=== PATIENT | male | born 1960 | race Caucasian/White ===

== ENCOUNTER 2019-07-26 11:40 | Day surgery (SDC) | payer MEDICAID, OTHER ==
[~2019-07-26 11:40] MED LIST: ATOR20TA PO; BUDE10.22 INH; CLON0.1T PO; CLOP75TA15 PO; GABA-534 PO; KEP500T PO; LEVO50TA PO; LISI-604 PO; MIDO5TAB4 PO; NITR0.4T48 SL; OLAN-1 PO; OMEP40CA13 PO; WARF3TAB56 PO
[2019-07-26 12:00] VITALS: BP 138/84
[2019-07-26] MEDS ORDERED: LIDOcaine 1% 30ml preserv. free vial IJ STA (12:32)
[2019-07-26] MEDS ORDERED: FERR325T28 PO (13:19)
[2019-07-26] MEDS ORDERED: PANT-47 PO (13:19)
[2019-07-26] MEDS ORDERED: FOLI0.4T2 PO (13:19)
[2019-07-26] MEDS ORDERED: VANC1PIG (13:19)
[2019-07-26] MEDS ORDERED: METO25TA6 PO (13:19)
[2019-07-26] MEDS ORDERED: RIFA150C27 PO (13:19)
[2019-07-26] MEDS ORDERED: DULO30CA52 PO (13:19)
[2019-07-26] MEDS ORDERED: MORP15TA PO (13:19)
[2019-07-26] MEDS ORDERED: NICO-687 TOP (13:19)
[2019-07-26 13:25] VITALS: BP 141/84
[2019-07-26 13:30] VITALS: BP 138/89
[2019-07-26 14:15] VITALS: BP 129/78
== END 2019-07-26 14:15 | disposition home or self-care (01) ==
LOC: SSTAY O 11:40
PROVIDERS: ATTEND Radiology Diagnostic Radiology
DX: R22.31 Localized swelling, mass and lump, right upper limb (principal); C49.11 Malignant neoplasm of connective and soft tissue of right upper limb, including shoulder; Z79.899 Other long term (current) drug therapy; Z79.01 Long term (current) use of anticoagulants; Z85.828 Personal history of other malignant neoplasm of skin; Z83.3 Family history of diabetes mellitus
CPT/HCPCS: 20206; 76942; J2001

== ENCOUNTER 2019-09-03 16:02 | Emergency (ER) | payer MEDICARE, OTHER ==
[~2019-09-03] VITALS: Ht 172.7 cm; Wt 72.0 kg
[~2019-09-03 16:02] MED LIST changes: -ATOR20TA PO; -BUDE10.22 INH; -CLON0.1T PO; -CLOP75TA15 PO; +DULO30CA52 PO; +FERR325T28 PO; +FOLI0.4T2 PO; -GABA-534 PO; -KEP500T PO; -LISI-604 PO; +METO25TA6 PO; +MORP15TA PO; +NICO-687 TOP; -NITR0.4T48 SL; -OLAN-1 PO; -OMEP40CA13 PO; +PANT-47 PO; +RIFA150C27 PO; +VANC1PIG
--- NOTE | 2019-09-03 17:37 | NUR ---
Provider Dr. Theodore is at the bedside.
[2019-09-03] MEDS ORDERED: morphine 10mg/ml inj. IV ONE ×3 (17:55→18:55)
[2019-09-03 18:19] LABS: BASOPHILS % (AUTO) 0.9 % (0-1); EOSINOPHILS # (AUTO) 0.1 X10'3 (0-0.9); EOSINOPHILS % (AUTO) 2.6 % (0-6); HEMATOCRIT 23.9 % (42.0-52.0); HEMOGLOBIN 8.3 g/dl (14.0-17.9); LYMPHOCYTES % (AUTO) 21.5 % (21-51); MEAN CORPUSCULAR HEMOGLOBIN 33.6 PG (27.0-31.0); MEAN CORPUSCULAR HGB CONC 34.9 g/dL (33.0-36.5); MEAN CORPUSCULAR VOLUME 96.2 FL (78-98); MEAN PLATELET VOLUME 8.2 FL (7.4-10.4); MONOCYTES # (AUTO) 0.4 X10'3 (0-0.9); MONOCYTES % (AUTO) 9.5 % (2-12); NEUTROPHILS % (AUTO) 65.5 % (42-75); PLATELET COUNT 139 X10'3 (140-440); RED BLOOD COUNT 2.48 X10'6 (4.70-6.10); RED CELL DISTRIBUTION WIDTH 16.5 % (11.5-14.5); WHITE BLOOD COUNT 4.6 X10'3 (4.5-11.0)
[2019-09-03 18:29] LABS: ALANINE AMINOTRANSFERASE 48 U/L (12-78); ALBUMIN 3.2 G/DL (3.4-5.0); ALBUMIN/GLOBULIN RATIO 0.6 (1.1-1.5); ALKALINE PHOSPHATASE 82 IU/L (46-116); ANION GAP 11 (8-16); ASPARTATE AMINO TRANSFERASE 59 U/L (10-37); BILIRUBIN,TOTAL 0.9 MG/DL (0.1-1.0); BLOOD UREA NITROGEN 14 MG/DL (7-18); BUN/CREATININE RATIO 15.9 (5.4-32.0); CALCIUM 8.5 MG/DL (8.5-10.1); CHLORIDE 97 MMOL/L (99-107); CREATININE 0.88 MG/DL (0.60-1.10); GLUCOSE 87 MG/DL (70-104); LIPASE 76 U/L (73-393); POTASSIUM 3.5 MMOL/L (3.5-5.1); SODIUM 134 MMOL/L (135-145); TOTAL CARBON DIOXIDE 26.2 MMOL/L (24-32); eGFR 88 ML/MIN
[2019-09-03 18:58] LABS: CLARITY,URINE CLEAR (Clear); COLOR,URINE YELLOW (Yellow); GLUCOSE, URINE NEGATIVE (Neg); KETONES,URINE NEGATIVE (Neg); LEUKOCYTE ESTERASE ,URINE NEGATIVE (Neg); NITRITES, URINE NEGATIVE (Neg); OCCULT BLOOD,URINE SMALL (Neg); PROTEIN,URINE NEGATIVE (Neg); UROBILINOGEN,URINE 0.2 E.U/dL (0.2-1.0)
[2019-09-03 19:02] LABS: UA COLLECTION TYPE STRAIGHT CATH
[2019-09-03 19:07] LABS: BACTERIA,URINE NONE SEEN /HPF (Neg); MUCUS STRANDS NONE SEEN /LPF (Neg); SQUAMOUS EPITHELIAL CELL,UR FEW /LPF (FEW); WBC,URINE 0-4 /HPF (0-4)
[2019-09-03] MEDS ORDERED: KETAMINE IV ONE (19:25)
[2019-09-03] MEDS ORDERED: NORMAL SALINE IV ONE (19:25)
--- NOTE | 2019-09-03 19:26 | NUR ---
dr. king at bedside to reeval. temp 100.1, just given msiv 15 mg for pain of 10 out of 10 to low back. pt reprots no bm in 5 days and is suspicious of this exacerbating his back pain. dr. gallardo updated of above.
[2019-09-03] MEDS ORDERED: magnesium citrate 296ml oral solution PO ONE (19:30)
[2019-09-03] MEDS ORDERED: GABA-532 PO (20:15)
[2019-09-03] MEDS ORDERED: LINA145C PO (20:15)
[2019-09-03 21:00] VITALS: BP 141/86
== END 2019-09-03 21:03 | disposition home or self-care (01) ==
LOC: ER 16:03
DX: K59.03 Drug induced constipation (principal); T40.695A Adverse effect of other narcotics, initial encounter; M54.5 Low back pain; G89.29 Other chronic pain; I35.0 Nonrheumatic aortic (valve) stenosis; I25.10 Atherosclerotic heart disease of native coronary artery without angina pectoris; I25.2 Old myocardial infarction; Z95.1 Presence of aortocoronary bypass graft; Z59.0 Homelessness; Z56.0 Unemployment, unspecified; Z98.890 Other specified postprocedural states; Z79.899 Other long term (current) drug therapy; Z79.01 Long term (current) use of anticoagulants; Z85.05 Personal history of malignant neoplasm of liver; Z85.118 Personal history of other malignant neoplasm of bronchus and lung; Y92.89 Other specified places as the place of occurrence of the external cause
CPT/HCPCS: 36415; 72100; 80053; 81001; 83690; 85025; 96365; 96375; 96376; 99284; J2270; P9612

== ENCOUNTER 2019-09-04 14:55 | Inpatient (IN) | payer MEDICARE, OTHER ==
[~2019-09-04] VITALS: Ht 172.7 cm; Wt 72.7 kg
[~2019-09-04 14:55] MED LIST changes: +GABA-532 PO; +LINA145C PO; -NICO-687 TOP; -VANC1PIG
--- NOTE | 2019-09-04 15:39 | NUR ---
Austin alvarez in [facility] - 09/04/19 at 1540 by CHUNG came in to er r/t back pain and having blood in his urnie
--- NOTE | 2019-09-04 15:40 | NUR ---
pt came in the er r/t back pain and having blood in his urine had a f/c placed yesterday temparly and was not able to get his medacation filled yesterday
[2019-09-04] MEDS ORDERED: ondansetron/PF 4mg/2ml inj IV ONE (16:00)
[2019-09-04] MEDS ORDERED: morphine 4 MG/ML inj SYRINge IV ONE (16:00)
[2019-09-04] MEDS ORDERED: ketamine 10mg/ml 20ml inj IV ONE (16:25)
[2019-09-04] MEDS ORDERED: ketamine 50 mg/ml 10ml vial IV ONE (16:25)
[2019-09-04 16:40] LABS: BASOPHILS % (AUTO) 0.8 % (0-1); EOSINOPHILS # (AUTO) 0.1 X10'3 (0-0.9); EOSINOPHILS % (AUTO) 2.6 % (0-6); HEMATOCRIT 24.1 % (42.0-52.0); HEMOGLOBIN 8.3 g/dl (14.0-17.9); LYMPHOCYTES # (AUTO) 1.2 X10'3 (1.1-4.8); LYMPHOCYTES % (AUTO) 23.5 % (21-51); MEAN CORPUSCULAR HEMOGLOBIN 33.1 PG (27.0-31.0); MEAN CORPUSCULAR HGB CONC 34.2 g/dL (33.0-36.5); MEAN CORPUSCULAR VOLUME 96.9 FL (78-98); MEAN PLATELET VOLUME 8.2 FL (7.4-10.4); MONOCYTES # (AUTO) 0.5 X10'3 (0-0.9); NEUTROPHILS # (AUTO) 3.2 X10'3 (1.8-7.7); NEUTROPHILS % (AUTO) 64.1 % (42-75); PLATELET COUNT 132 X10'3 (140-440); RED BLOOD COUNT 2.49 X10'6 (4.70-6.10); RED CELL DISTRIBUTION WIDTH 16.9 % (11.5-14.5)
[2019-09-04] MEDS ORDERED: KETAMINE IV ONE (16:40)
[2019-09-04] MEDS ORDERED: NORMAL SALINE IV ONE (16:40)
[2019-09-04 16:52] LABS: PARTIAL THROMBOPLASTIN TIME 36 SECONDS (22-32)
[2019-09-04] MEDS ORDERED: ketamine 10mg/ml 20ml inj 20 MG in normal saline 100ml IV soln 98 ML IV ONE ×2 (16:52→17:10)
[2019-09-04 16:55] LABS: ALANINE AMINOTRANSFERASE 34 U/L (12-78); ALBUMIN 3.2 G/DL (3.4-5.0); ALBUMIN/GLOBULIN RATIO 0.5 (1.1-1.5); ALKALINE PHOSPHATASE 81 IU/L (46-116); ANION GAP 7 (8-16); ASPARTATE AMINO TRANSFERASE 48 U/L (10-37); BILIRUBIN,TOTAL 1.2 MG/DL (0.1-1.0); BLOOD UREA NITROGEN 21 MG/DL (7-18); BUN/CREATININE RATIO 22.6 (5.4-32.0); CALCIUM 8.5 MG/DL (8.5-10.1); CHLORIDE 97 MMOL/L (99-107); CREATININE 0.93 MG/DL (0.60-1.10); GLUCOSE 104 MG/DL (70-104); POTASSIUM 3.7 MMOL/L (3.5-5.1); SODIUM 132 MMOL/L (135-145); TOTAL CARBON DIOXIDE 28.1 MMOL/L (24-32); TOTAL PROTEIN 9.1 G/DL (6.4-8.2); eGFR 83 ML/MIN
[2019-09-04] MEDS ORDERED: morphine 10mg/ml inj. IV ONE (19:05)
[2019-09-04] MEDS ORDERED: magnesium hydroxide 30ml (MOM) UD suspension PO PRN (19:45)
[2019-09-04] MEDS ORDERED: morphine 2 MG/ML inj. syringe IV PRN (19:45)
[2019-09-04] MEDS ORDERED: mag hydrox/Alum hydrox/simeth 30ml oral suspension PO PRN (19:45)
[2019-09-04] MEDS: metoprolol tartrate 25mg tablet PO SCH (20:00)
[2019-09-04] MEDS ORDERED: warfarin 5mg tablet PO ONE (20:41)
[2019-09-04 21:00] VITALS: BP 98/56
[2019-09-04] MEDS: morphine IR (immed. release) 30mg tablet PO SCH (22:15)
[2019-09-04] MEDS: heparin, porcine 5000 units/ml vial SQ SCH (22:16)
--- NOTE | 2019-09-04 22:53 | NUR ---
Report from ED. Pt is up to floor and settled in. sitting up at bedside, does not want to lie in bed.Very painful 08/03. ED report that pt has "used up all home meds for pain." two sandwiches and 4 milk with yogurt and applesauce provided. All available pain meds have been administered at this time.
[2019-09-05] MEDS: gabapentin 300mg capsule PO SCH ×4 (00:06→23:07)
[2019-09-05 06:00] VITALS: BP 100/57
--- NOTE | 2019-09-05 06:16 | NUR ---
REPORT GIVEN TO MIRIAM ELISE.
[2019-09-05 06:21] LABS: ALANINE AMINOTRANSFERASE 29 U/L (12-78); ALBUMIN 2.9 G/DL (3.4-5.0); ALBUMIN/GLOBULIN RATIO 0.5 (1.1-1.5); ALKALINE PHOSPHATASE 75 IU/L (46-116); ANION GAP 5 (8-16); ASPARTATE AMINO TRANSFERASE 43 U/L (10-37); BILIRUBIN,TOTAL 0.7 MG/DL (0.1-1.0); BLOOD UREA NITROGEN 21 MG/DL (7-18); BUN/CREATININE RATIO 23.1 (5.4-32.0); CALCIUM 8.1 MG/DL (8.5-10.1); CHLORIDE 98 MMOL/L (99-107); CREATININE 0.91 MG/DL (0.60-1.10); GLUCOSE 98 MG/DL (70-104); POTASSIUM 3.6 MMOL/L (3.5-5.1); SODIUM 134 MMOL/L (135-145); TOTAL CARBON DIOXIDE 30.6 MMOL/L (24-32); TOTAL PROTEIN 8.5 G/DL (6.4-8.2); eGFR 85 ML/MIN
[2019-09-05 06:32] LABS: BASOPHILS % (AUTO) 0.9 % (0-1); EOSINOPHILS # (AUTO) 0.3 X10'3 (0-0.9); EOSINOPHILS % (AUTO) 5.8 % (0-6); HEMATOCRIT 23.5 % (42.0-52.0); HEMOGLOBIN 8.2 g/dl (14.0-17.9); LYMPHOCYTES % (AUTO) 23.8 % (21-51); MEAN CORPUSCULAR HEMOGLOBIN 33.8 PG (27.0-31.0); MEAN CORPUSCULAR HGB CONC 34.8 g/dL (33.0-36.5); MEAN CORPUSCULAR VOLUME 97.1 FL (78-98); MEAN PLATELET VOLUME 8.2 FL (7.4-10.4); MONOCYTES # (AUTO) 0.4 X10'3 (0-0.9); MONOCYTES % (AUTO) 8.9 % (2-12); NEUTROPHILS # (AUTO) 2.7 X10'3 (1.8-7.7); NEUTROPHILS % (AUTO) 60.6 % (42-75); PLATELET COUNT 121 X10'3 (140-440); RED BLOOD COUNT 2.42 X10'6 (4.70-6.10); RED CELL DISTRIBUTION WIDTH 17.3 % (11.5-14.5); WHITE BLOOD COUNT 4.4 X10'3 (4.5-11.0)
--- NOTE | 2019-09-05 06:37 | NUR ---
Patient in room [facility] 4016. I have received report from Aliyah PINEDA and had the opportunity to ask questions and assume patient care.
[2019-09-05] MEDS: (Linaclotide (Linzess) 1 CAP) PO SCH (08:00)
[2019-09-05] MEDS: metoprolol tartrate 25mg tablet PO SCH ×2 (08:00→19:58)
[2019-09-05] MEDS: duloxetine 30mg CAPSULE.DR PO SCH (08:07)
[2019-09-05] MEDS: levoTHYROXINE 25mcg tablet PO SCH (08:08)
[2019-09-05] MEDS: morphine IR (immed. release) 30mg tablet PO SCH ×2 (08:12→20:28)
[2019-09-05] MEDS: heparin, porcine 5000 units/ml vial SQ SCH ×2 (08:15→20:00)
--- NOTE | 2019-09-05 08:28 | NUR ---
Rifampin non admited due to patient not being able to tell us the reason for taking this medication. Dr. will be asked if med is needed, will continue to monitor
[2019-09-05 10:00] VITALS: BP 96/99
[2019-09-05] MEDS: morphine 2 MG/ML inj. syringe IV PRN ×4 (10:56→22:58)
--- NOTE | 2019-09-05 11:51 | NUR ---
Student documentation: I have reviewed and agree with all interventions, assessments performed and documented by Anna Coy.
--- NOTE | 2019-09-05 11:52 | NUR ---
Student Medication Administration:For this medication-pass time frame [id number], all medications were reviewed, administered and documented per hospital policy by Anna Coy.
[2019-09-05] MEDS: HYDROcodone/acetaminophen 10/325mg tab PO PRN ×2 (13:25→18:40)
--- NOTE | 2019-09-05 16:14 | NUR ---
Malnutrition consult. Per documented weight history patient's weight is stable, no weight loss. Eating fairly well, ate 100% of lunch, overall average intake of 50-74%. No edema. Does not meet criteria for malnutrition at this time. Will continue to follow per protocol. Addendum: 09/05/19 at [address] Amended: Links added.
--- NOTE | 2019-09-05 18:25 | NUR ---
Problems reprioritized. Patient report given, questions answered & plan of care reviewed with Stan PINEDA.
[2019-09-05 19:00] VITALS: BP 98/56
[2019-09-05] MEDS ORDERED: warfarin 5mg tablet PO ONE (21:00)
[2019-09-05 23:00] VITALS: BP 105/64
[2019-09-06] MEDS: morphine 2 MG/ML inj. syringe IV PRN ×3 (02:11→10:14)
[2019-09-06] MEDS: HYDROcodone/acetaminophen 10/325mg tab PO PRN ×2 (05:03→16:33)
[2019-09-06 06:00] VITALS: BP 114/62
[2019-09-06 06:18] LABS: ALANINE AMINOTRANSFERASE 33 U/L (12-78); ALBUMIN 2.8 G/DL (3.4-5.0); ALBUMIN/GLOBULIN RATIO 0.5 (1.1-1.5); ALKALINE PHOSPHATASE 78 IU/L (46-116); ANION GAP 8 (8-16); ASPARTATE AMINO TRANSFERASE 47 U/L (10-37); BILIRUBIN,TOTAL 0.6 MG/DL (0.1-1.0); BLOOD UREA NITROGEN 26 MG/DL (7-18); BUN/CREATININE RATIO 31.3 (5.4-32.0); CALCIUM 8.4 MG/DL (8.5-10.1); CHLORIDE 97 MMOL/L (99-107); CREATININE 0.83 MG/DL (0.60-1.10); GLUCOSE 96 MG/DL (70-104); POTASSIUM 4.5 MMOL/L (3.5-5.1); SODIUM 132 MMOL/L (135-145); TOTAL CARBON DIOXIDE 27.5 MMOL/L (24-32); TOTAL PROTEIN 8.2 G/DL (6.4-8.2); eGFR > 90 ML/MIN
--- NOTE | 2019-09-06 06:36 | NUR ---
Problems reprioritized. Patient report given, questions answered & plan of care reviewed with ARIK. Addendum: 09/06/19 at 0637 by Monty Tamez RN Amended: Links added.
[2019-09-06 06:44] LABS: BASOPHILS % (AUTO) 0.6 % (0-1); EOSINOPHILS # (AUTO) 0.2 X10'3 (0-0.9); EOSINOPHILS % (AUTO) 4.7 % (0-6); HEMATOCRIT 24.7 % (42.0-52.0); HEMOGLOBIN 8.4 g/dl (14.0-17.9); LYMPHOCYTES # (AUTO) 1.2 X10'3 (1.1-4.8); LYMPHOCYTES % (AUTO) 26.8 % (21-51); MEAN CORPUSCULAR VOLUME 100.2 FL (78-98); MONOCYTES # (AUTO) 0.4 X10'3 (0-0.9); MONOCYTES % (AUTO) 9.5 % (2-12); NEUTROPHILS # (AUTO) 2.7 X10'3 (1.8-7.7); NEUTROPHILS % (AUTO) 58.4 % (42-75); PLATELET COUNT 106 X10'3 (140-440); RED BLOOD COUNT 2.47 X10'6 (4.70-6.10); RED CELL DISTRIBUTION WIDTH 17.3 % (11.5-14.5); WHITE BLOOD COUNT 4.6 X10'3 (4.5-11.0)
--- NOTE | 2019-09-06 06:46 | NUR ---
Patient in room [facility]TH[facility] 4016. I have received report from Stan PINEDA and had the opportunity to ask questions and assume patient care.
[2019-09-06] MEDS: (Linaclotide (Linzess) 1 CAP) PO SCH (08:00)
[2019-09-06] MEDS: heparin, porcine 5000 units/ml vial SQ SCH (08:07)
[2019-09-06] MEDS: gabapentin 300mg capsule PO SCH ×2 (08:08→16:33)
[2019-09-06] MEDS: levoTHYROXINE 25mcg tablet PO SCH (08:08)
[2019-09-06] MEDS: duloxetine 30mg CAPSULE.DR PO SCH (08:08)
[2019-09-06] MEDS: metoprolol tartrate 25mg tablet PO SCH ×2 (08:12→20:00)
[2019-09-06] MEDS: morphine IR (immed. release) 30mg tablet PO SCH ×2 (08:13→20:05)
--- NOTE | 2019-09-06 09:41 | NUR ---
paged hospitalist: [phone] MESSAGE: [phone] Britany Obrien patients is complaining of pain 9/10 even after morphine IR tab can we change to morphine ER tab for longer pain relief, will continue to monitor
[2019-09-06 10:00] VITALS: BP 124/52
[2019-09-06] MEDS ORDERED: HYDROmorphone 1 mg/ml syringe IV ONE (11:40)
--- NOTE | 2019-09-06 12:00 | NUR ---
Hospitalist rounded and is aware of patients pain not being controlled, orders will be put in and changed, will continue to monitor
--- NOTE | 2019-09-06 17:00 | NUR ---
Hospitalist called for PRN pain meds, PRN norco 10/ is not working per patient, hospitalist ordered Dilaudid 1mg q6 prn pain, will continue to monitor
[2019-09-06] MEDS ORDERED: HYDROmorphone 1 mg/ml syringe IV PRN (17:05)
--- NOTE | 2019-09-06 17:38 | NUR ---
Problems reprioritized. Patient report given, questions answered & plan of care reviewed with Yaneli PINEDA.
--- NOTE | 2019-09-06 17:39 | NUR ---
patient moved to surgical floor room 0888
[2019-09-06 17:59] VITALS: BP 124/67
--- NOTE | 2019-09-06 18:01 | NUR ---
Pt has arrived to floor, it is shift change and will be assessed by shift supervisor film processing. Vitals stable, patient alert, oriented and appropriate although is a very anxious person and wants to smoke and is suggesting 2mg of Dilaudid he calms down somewhat when talked to. Pt is tucked into room and eating dinner.
--- NOTE | 2019-09-06 18:59 | NUR ---
Problems reprioritized. Patient report given, questions answered & plan of care reviewed with Taisha PINEDA.
--- NOTE | 2019-09-06 19:00 | NUR ---
Talked to Dr Parham regarding pain meds and comfort care and anxiety. Orders received for xanex .25 PO Q8H, dc norco and increase dilaudid to 2mg q6h. Taisha Payne aware and orders put in.
[2019-09-06 20:00] VITALS: BP 96/47
[2019-09-06] MEDS: ALPRAZolam 0.25mg tablet PO PRN (20:18)
[2019-09-06] MEDS ORDERED: warfarin 7.5mg tablet PO ONE (21:00)
[2019-09-06] MEDS: HYDROmorphone 1 mg/ml syringe IV PRN (22:38)
[2019-09-07] VITALS: BP 108/66
[2019-09-07] MEDS: gabapentin 300mg capsule PO SCH ×4 (00:02→23:14)
[2019-09-07] MEDS: acetaminophen 325mg tablet PO PRN ×2 (02:01→07:38)
[2019-09-07] MEDS: HYDROmorphone 1 mg/ml syringe IV PRN ×3 (04:37→23:15)
[2019-09-07 05:04] LABS: BASOPHILS % (AUTO) 0.8 % (0-1); EOSINOPHILS # (AUTO) 0.2 X10'3 (0-0.9); EOSINOPHILS % (AUTO) 4.6 % (0-6); HEMOGLOBIN 7.7 g/dl (14.0-17.9); LYMPHOCYTES # (AUTO) 0.9 X10'3 (1.1-4.8); LYMPHOCYTES % (AUTO) 21.7 % (21-51); MEAN CORPUSCULAR HEMOGLOBIN 34.1 PG (27.0-31.0); MEAN CORPUSCULAR HGB CONC 34.9 g/dL (33.0-36.5); MEAN CORPUSCULAR VOLUME 97.6 FL (78-98); MEAN PLATELET VOLUME 9.5 FL (7.4-10.4); MONOCYTES # (AUTO) 0.3 X10'3 (0-0.9); MONOCYTES % (AUTO) 7.8 % (2-12); NEUTROPHILS # (AUTO) 2.6 X10'3 (1.8-7.7); NEUTROPHILS % (AUTO) 65.1 % (42-75); PLATELET COUNT 107 X10'3 (140-440); RED BLOOD COUNT 2.25 X10'6 (4.70-6.10); RED CELL DISTRIBUTION WIDTH 17.2 % (11.5-14.5)
[2019-09-07 05:08] LABS: HEMATOCRIT 21.9 % (42.0-52.0)
[2019-09-07 05:29] LABS: ALANINE AMINOTRANSFERASE 40 U/L (12-78); ALBUMIN 2.9 G/DL (3.4-5.0); ALBUMIN/GLOBULIN RATIO 0.6 (1.1-1.5); ALKALINE PHOSPHATASE 86 IU/L (46-116); ANION GAP 4 (8-16); ASPARTATE AMINO TRANSFERASE 51 U/L (10-37); BILIRUBIN,TOTAL 0.6 MG/DL (0.1-1.0); BLOOD UREA NITROGEN 28 MG/DL (7-18); BUN/CREATININE RATIO 32.2 (5.4-32.0); CALCIUM 8.3 MG/DL (8.5-10.1); CHLORIDE 95 MMOL/L (99-107); CREATININE 0.87 MG/DL (0.60-1.10); GLUCOSE 106 MG/DL (70-104); POTASSIUM 4.4 MMOL/L (3.5-5.1); SODIUM 129 MMOL/L (135-145); TOTAL CARBON DIOXIDE 30.1 MMOL/L (24-32); eGFR 90 ML/MIN
--- NOTE | 2019-09-07 05:30 | NUR ---
Critical hematocrit of 21.[address] Langley notified.
--- NOTE | 2019-09-07 06:47 | NUR ---
Patient in room [facility]. I have received report from MIRIAM JOHNSON and had the opportunity to ask questions and assume patient care.
--- NOTE | 2019-09-07 06:49 | NUR ---
Patient in room [facility]. I have received report from MIRIAM Sumner and had the opportunity to ask questions and assume patient care.
[2019-09-07 07:00] VITALS: BP_SYST 105; BP_SYST 95; BP_DIAS 47; BP_DIAS 62
[2019-09-07] MEDS: morphine IR (immed. release) 30mg tablet PO SCH ×2 (07:25→20:17)
[2019-09-07] MEDS: metoprolol tartrate 25mg tablet PO SCH ×2 (07:26→20:00)
[2019-09-07] MEDS: levoTHYROXINE 25mcg tablet PO SCH (07:26)
[2019-09-07] MEDS: duloxetine 30mg CAPSULE.DR PO SCH (07:30)
[2019-09-07] MEDS: ondansetron/PF 4mg/2ml inj IV PRN (07:31)
[2019-09-07] MEDS: (Linaclotide (Linzess) 1 CAP) PO SCH (07:40)
[2019-09-07] MEDS: rifampin 300mg capsule PO SCH (09:22)
[2019-09-07] MEDS ORDERED: normal saline 1000ml 1,000 ML IV SCH (12:10)
[2019-09-07 12:11] VITALS: BP 90/52
--- NOTE | 2019-09-07 12:17 | NUR ---
Dr. Parham notified of patient's low BP of 90/52 HR 57. No new order received. Patient SPO2% 90 on RA. Patient reports that he does have COPD and that it is normal for him to be low 90's and high 80's (88-89). Patient resting with eyes closed with respirations 16/min even and unlabored. Patient does not appear to be in any acute apparent distress. Addendum: 09/07/19 at 1237 by Estee Epps RN Dr Parham also notified of patient spo2. no new orders.
--- NOTE | 2019-09-07 12:37 | NUR ---
Dr Parham called and stated she would like for patient to have normal saline iv @ 100ml/hr for 2.5 hours for total of 250ml infused and to recheck patient's BP and call her.
[2019-09-07] MEDS: normal saline 1000ml 1,000 ML IV SCH ×2 (12:47→16:32)
--- NOTE | 2019-09-07 15:50 | NUR ---
Patient 250ml of NS completed and rechecked BP. BP is 99/53, 85/[address] Parham.
[2019-09-07] MEDS: oxyCODONE/APAP 10/325mg tablet PO PRN (17:15)
--- NOTE | 2019-09-07 17:28 | NUR ---
Patient requesting for dilaudid. Let him know that dr has dc'd his dilaudid IV pain med received call from patient's "POA" and she states she feels like patient's pain is not being managed, " I feel like he has to beg for his pain and he is dying and that isn't right." "I also need for you to let whoever it is, case management or manager social services that he will need interim health care because he has no family close, no one to help him and he has no ride. He told me he doesn't like his Dr and is asking for a new one. He thinks she isn't trying to help him and that she is mean." Let patientk now that patient BP has been low and that Dr had dc'd it due to that but that he has percocet ordered. Patient agreed to take percocet. Let insulation cupola charger know that patient requesting new MD and what LAWRENCE had said. Also notified [employer] and Dr. Parham.
[2019-09-07 18:00] VITALS: BP 113/62
--- NOTE | 2019-09-07 18:05 | NUR ---
Patient in room [facility]. I have received report from Estee PINEDA and had the opportunity to ask questions and assume patient care.
[2019-09-07] MEDS ORDERED: HYDROmorphone 1 mg/ml syringe IV ONE (18:25)
--- NOTE | 2019-09-07 18:55 | NUR ---
Dr. Parham called back and ordered one time give of Dilaudid 1mg IV now. Dilaudid given as ordered. Patient wanted to have his "" who is the POA notified. Notified Amanda BRAVO.
--- NOTE | 2019-09-07 18:57 | NUR ---
Problems reprioritized. Patient report given, questions answered & plan of care reviewed with araceli alvarenga.
--- NOTE | 2019-09-07 20:21 | NUR ---
Patient refused 2000 dose of Metoprolol. Stated that he was "been running low lately and I want to try without tonight. I'm tired of being too low and not getting pain control because of it." Will continue to monitor.
[2019-09-07] MEDS ORDERED: warfarin 5mg tablet PO ONE (21:00)
[2019-09-08] VITALS (9 sets, daily range): BP systolic 94–131; BP diastolic 47–70
[2019-09-08] MEDS: oxyCODONE/APAP 10/325mg tablet PO PRN ×4 (02:10→23:39)
[2019-09-08 04:36] LABS: BASOPHILS % (AUTO) 0.8 % (0-1); EOSINOPHILS # (AUTO) 0.2 X10'3 (0-0.9); EOSINOPHILS % (AUTO) 4.9 % (0-6); HEMOGLOBIN 7.3 g/dl (14.0-17.9); LYMPHOCYTES # (AUTO) 0.8 X10'3 (1.1-4.8); LYMPHOCYTES % (AUTO) 22.9 % (21-51); MEAN CORPUSCULAR HEMOGLOBIN 34.4 PG (27.0-31.0); MEAN CORPUSCULAR HGB CONC 34.9 g/dL (33.0-36.5); MEAN CORPUSCULAR VOLUME 98.6 FL (78-98); MEAN PLATELET VOLUME 8.9 FL (7.4-10.4); MONOCYTES # (AUTO) 0.3 X10'3 (0-0.9); MONOCYTES % (AUTO) 8.7 % (2-12); NEUTROPHILS # (AUTO) 2.1 X10'3 (1.8-7.7); NEUTROPHILS % (AUTO) 62.7 % (42-75); PLATELET COUNT 105 X10'3 (140-440); RED BLOOD COUNT 2.13 X10'6 (4.70-6.10); RED CELL DISTRIBUTION WIDTH 18.1 % (11.5-14.5); WHITE BLOOD COUNT 3.4 X10'3 (4.5-11.0)
[2019-09-08 04:46] LABS: ALANINE AMINOTRANSFERASE 40 U/L (12-78); ALBUMIN 2.7 G/DL (3.4-5.0); ALBUMIN/GLOBULIN RATIO 0.5 (1.1-1.5); ALKALINE PHOSPHATASE 77 IU/L (46-116); ANION GAP 0 (8-16); ASPARTATE AMINO TRANSFERASE 46 U/L (10-37); BILIRUBIN,TOTAL 0.4 MG/DL (0.1-1.0); BLOOD UREA NITROGEN 27 MG/DL (7-18); BUN/CREATININE RATIO 24.8 (5.4-32.0); CALCIUM 8.4 MG/DL (8.5-10.1); CHLORIDE 98 MMOL/L (99-107); CREATININE 1.09 MG/DL (0.60-1.10); GLUCOSE 108 MG/DL (70-104); POTASSIUM 4.6 MMOL/L (3.5-5.1); SODIUM 129 MMOL/L (135-145); TOTAL CARBON DIOXIDE 30.6 MMOL/L (24-32); TOTAL PROTEIN 7.8 G/DL (6.4-8.2); eGFR 69 ML/MIN
[2019-09-08] MEDS: HYDROmorphone 1 mg/ml syringe IV PRN ×4 (05:14→23:50)
--- NOTE | 2019-09-08 06:27 | NUR ---
Problems reprioritized. Patient report given, questions answered & plan of care reviewed with Yaneli PINEDA.
--- NOTE | 2019-09-08 06:37 | NUR ---
Patient in room [facility]. I have received report from MIRIAM Salazar and had the opportunity to ask questions and assume patient care.
[2019-09-08] MEDS: gabapentin 300mg capsule PO SCH ×3 (07:08→23:39)
[2019-09-08] MEDS: levoTHYROXINE 25mcg tablet PO SCH (07:08)
[2019-09-08] MEDS: duloxetine 30mg CAPSULE.DR PO SCH (07:08)
[2019-09-08] MEDS: morphine IR (immed. release) 30mg tablet PO SCH ×2 (07:09→19:34)
[2019-09-08] MEDS: metoprolol tartrate 25mg tablet PO SCH ×2 (07:10→19:34)
[2019-09-08] MEDS: rifampin 300mg capsule PO SCH (07:10)
[2019-09-08] MEDS: (Linaclotide (Linzess) 1 CAP) PO SCH (07:11)
[2019-09-08] MEDS: ALPRAZolam 0.25mg tablet PO PRN ×2 (08:37→21:02)
[2019-09-08] MEDS ORDERED: HYDROmorphone 1 mg/ml syringe IV ONE (10:30)
--- NOTE | 2019-09-08 10:40 | NUR ---
Initial: Pt admit with intractable pain and metastatic cancer, wanting to be on hospice, currently DNR. Pt with hx head and neck cancer tx requiring a feeding tube placement per H&P. Pt currently on a regular diet documented with 75-100% PO intake throughout LOS meeting nutrient needs. LBM 09/08. No nutrition diagnosis at this time. Will continue to follow. Recommendations: 1) Continue regular diet 2) Bowel care PRN 3) Wt per rx Addendum: 09/08/19 at [address] Amended: Links added.
--- NOTE | 2019-09-08 18:00 | NUR ---
Patient in room [facility]. I have received report from Gus PINEDA and had the opportunity to ask questions and assume patient care.
--- NOTE | 2019-09-08 18:44 | NUR ---
Problems reprioritized. Patient report given to Martin PINEDA, questions answered & plan of care reviewed with .
[2019-09-08] MEDS ORDERED: warfarin 7.5mg tablet PO ONE (21:00)
[2019-09-08] MEDS ORDERED: ketorolac trometh. 30mg/ml inj. IV ONE (21:25)
[2019-09-09] VITALS: BP 113/56
[2019-09-09] MEDS: normal saline 1000ml 1,000 ML IV SCH ×2 (00:45→22:37)
[2019-09-09] MEDS: oxyCODONE/APAP 10/325mg tablet PO PRN (05:33)
[2019-09-09 05:36] LABS: BASOPHILS % (AUTO) 0.8 % (0-1); EOSINOPHILS # (AUTO) 0.2 X10'3 (0-0.9); EOSINOPHILS % (AUTO) 4.4 % (0-6); HEMATOCRIT 23.7 % (42.0-52.0); HEMOGLOBIN 8.4 g/dl (14.0-17.9); LYMPHOCYTES # (AUTO) 0.8 X10'3 (1.1-4.8); LYMPHOCYTES % (AUTO) 21.6 % (21-51); MEAN CORPUSCULAR HEMOGLOBIN 34.4 PG (27.0-31.0); MEAN CORPUSCULAR HGB CONC 35.6 g/dL (33.0-36.5); MEAN CORPUSCULAR VOLUME 96.5 FL (78-98); MEAN PLATELET VOLUME 8.9 FL (7.4-10.4); MONOCYTES # (AUTO) 0.3 X10'3 (0-0.9); MONOCYTES % (AUTO) 8.1 % (2-12); NEUTROPHILS # (AUTO) 2.4 X10'3 (1.8-7.7); NEUTROPHILS % (AUTO) 65.1 % (42-75); PLATELET COUNT 117 X10'3 (140-440); RED BLOOD COUNT 2.45 X10'6 (4.70-6.10); RED CELL DISTRIBUTION WIDTH 18.7 % (11.5-14.5); WHITE BLOOD COUNT 3.7 X10'3 (4.5-11.0)
[2019-09-09] MEDS: HYDROmorphone 1 mg/ml syringe IV PRN ×4 (05:51→22:34)
[2019-09-09 06:01] LABS: ALANINE AMINOTRANSFERASE 44 U/L (12-78); ALBUMIN 2.9 G/DL (3.4-5.0); ALBUMIN/GLOBULIN RATIO 0.5 (1.1-1.5); ALKALINE PHOSPHATASE 78 IU/L (46-116); ANION GAP 3 (8-16); ASPARTATE AMINO TRANSFERASE 50 U/L (10-37); BILIRUBIN,TOTAL 0.6 MG/DL (0.1-1.0); BLOOD UREA NITROGEN 34 MG/DL (7-18); BUN/CREATININE RATIO 35.8 (5.4-32.0); CALCIUM 8.7 MG/DL (8.5-10.1); CHLORIDE 97 MMOL/L (99-107); CREATININE 0.95 MG/DL (0.60-1.10); GLUCOSE 96 MG/DL (70-104); POTASSIUM 4.8 MMOL/L (3.5-5.1); SODIUM 130 MMOL/L (135-145); TOTAL CARBON DIOXIDE 30.3 MMOL/L (24-32); TOTAL PROTEIN 8.4 G/DL (6.4-8.2); eGFR 81 ML/MIN
--- NOTE | 2019-09-09 06:24 | NUR ---
Problems reprioritized. Patient report given, questions answered & plan of care reviewed with David RN.
--- NOTE | 2019-09-09 06:30 | NUR ---
Patient in room [facility]. I have received report from Martin PINEDA and had the opportunity to ask questions and assume patient care.
[2019-09-09 07:25] VITALS: BP 106/52
[2019-09-09] MEDS: (Linaclotide (Linzess) 1 CAP) PO SCH (08:00)
[2019-09-09] MEDS: rifampin 300mg capsule PO SCH (08:10)
[2019-09-09] MEDS: duloxetine 30mg CAPSULE.DR PO SCH (08:11)
[2019-09-09] MEDS: metoprolol tartrate 25mg tablet PO SCH ×2 (08:11→20:00)
[2019-09-09] MEDS: morphine IR (immed. release) 30mg tablet PO SCH ×2 (08:11→20:00)
[2019-09-09] MEDS: gabapentin 300mg capsule PO SCH ×2 (08:11→16:46)
[2019-09-09] MEDS: levoTHYROXINE 25mcg tablet PO SCH (08:12)
[2019-09-09 11:41] VITALS: BP 121/57
[2019-09-09] MEDS ORDERED: HYDROmorphone 1 mg/ml syringe IV ONE (12:35)
--- NOTE | 2019-09-09 18:00 | NUR ---
Patient in room [facility]. I have received report from David PINEDA and had the opportunity to ask questions and assume patient care.
--- NOTE | 2019-09-09 18:30 | NUR ---
Problems reprioritized. Patient report given, questions answered & plan of care reviewed with Martin PINEDA.
[2019-09-09 20:00] VITALS: BP 105/61
[2019-09-09] MEDS ORDERED: warfarin 5mg tablet PO ONE (21:00)
[2019-09-10] MEDS: gabapentin 300mg capsule PO SCH ×3 (00:55→16:29)
[2019-09-10] MEDS: HYDROmorphone 1 mg/ml syringe IV PRN ×3 (04:31→16:30)
--- NOTE | 2019-09-10 06:24 | NUR ---
Problems reprioritized. Patient report given, questions answered & plan of care reviewed with David RN.
[2019-09-10 07:32] VITALS: BP 92/54
[2019-09-10] MEDS: (Linaclotide (Linzess) 1 CAP) PO SCH (08:00)
[2019-09-10] MEDS: metoprolol tartrate 25mg tablet PO SCH ×2 (08:00→20:02)
[2019-09-10] MEDS: rifampin 300mg capsule PO SCH (08:28)
[2019-09-10] MEDS: levoTHYROXINE 25mcg tablet PO SCH (08:29)
[2019-09-10] MEDS: duloxetine 30mg CAPSULE.DR PO SCH (08:29)
[2019-09-10] MEDS: morphine IR (immed. release) 30mg tablet PO SCH ×2 (08:29→20:00)
[2019-09-10] MEDS: ondansetron/PF 4mg/2ml inj IV PRN (09:49)
--- NOTE | 2019-09-10 10:56 | NUR ---
Breaking primary RN David. BP 114/51 dilaudid given as ordered. Primary RN, David aware.
[2019-09-10 11:00] VITALS: BP 132/78
[2019-09-10] MEDS: normal saline 1000ml 1,000 ML IV SCH (17:05)
--- NOTE | 2019-09-10 18:40 | NUR ---
Problems reprioritized. Patient report given, questions answered & plan of care reviewed with Ama PINEDA.
--- NOTE | 2019-09-10 18:54 | NUR ---
Patient in room [facility]. I have received report from David Payne and had the opportunity to ask questions and assume patient care. Addendum: 09/10/19 at 1855 by Ama Marr RN Amended: Links added.
[2019-09-10 20:00] VITALS: BP 109/52
--- NOTE | 2019-09-10 20:04 | NUR ---
pain medication morphine Ir given to the pt and coumadin to him. per orders. pt requested charge entry wanted dilaudid given to be given to him but had it 3 hours ago and listed as a Q 8hour prn. pt was asleep when entering the room to give him his pain med. innformed charge entry of this and pt's bp and that he is being given pain med now. charge entry talking with the pt.
[2019-09-10] MEDS ORDERED: warfarin 5mg tablet PO ONE (21:00)
--- NOTE | 2019-09-10 21:00 | NUR ---
iv site left derrick started leaking noted dislodged in the hand and site dc'd intact. attempt x1 to restart iv. one obtained the blew out.
--- NOTE | 2019-09-10 23:00 | NUR ---
warmed burrito's and milk and oj given to pt per request.
[2019-09-11] VITALS: BP 93/49
[2019-09-11] MEDS: gabapentin 300mg capsule PO SCH ×4 (00:06→23:34)
--- NOTE | 2019-09-11 00:10 | NUR ---
pt given po Neurontin and Dilaudid for c/o pain 08/03 per request.
[2019-09-11] MEDS: HYDROmorphone 1 mg/ml syringe IV PRN ×2 (00:11→08:23)
--- NOTE | 2019-09-11 02:08 | NUR ---
resting eyes closed without changes at this time.
--- NOTE | 2019-09-11 02:15 | NUR ---
pt awoke given snacks to eat. requested a back brace and instead vijaya wrap applied for pt c/o back discomfort. also medicated with xanax for this.
[2019-09-11] MEDS: ALPRAZolam 0.25mg tablet PO PRN (02:25)
--- NOTE | 2019-09-11 04:00 | NUR ---
warmed up a burrito for him and he ate it. then laid back down.
--- NOTE | 2019-09-11 05:18 | NUR ---
pt resting eyes closed without changes or s&s of distress.
--- NOTE | 2019-09-11 06:47 | NUR ---
Problems reprioritized. Patient report given, questions answered & plan of care reviewed with Lynn Payne. Addendum: 09/11/19 at 0647 by Ama Marr RN Amended: Links added.
--- NOTE | 2019-09-11 06:51 | NUR ---
Patient in room [facility]. I have received report from Ama PINEDA and had the opportunity to ask questions and assume patient care.
[2019-09-11 07:00] VITALS: BP 97/40
[2019-09-11] MEDS: (Linaclotide (Linzess) 1 CAP) PO SCH (08:00)
[2019-09-11] MEDS: metoprolol tartrate 25mg tablet PO SCH ×2 (08:00→20:07)
[2019-09-11] MEDS: morphine IR (immed. release) 30mg tablet PO SCH ×3 (08:00→20:08)
[2019-09-11] MEDS: baclofen 10mg tablet PO SCH (08:23)
[2019-09-11] MEDS: levoTHYROXINE 25mcg tablet PO SCH (08:24)
[2019-09-11] MEDS: rifampin 300mg capsule PO SCH (08:24)
[2019-09-11] MEDS: duloxetine 30mg CAPSULE.DR PO SCH (08:24)
--- NOTE | 2019-09-11 08:30 | NUR ---
Patient refused dose of scheduled Morphine IR, preferred Dilaudid 2mg IV instead.
[2019-09-11 10:37] VITALS: BP 146/62
--- NOTE | 2019-09-11 10:37 | NUR ---
Patient asking for pain medicine, BP rechecked 142/67. Morphine IR held this am resumed
[2019-09-11 11:00] VITALS: BP 117/47
--- NOTE | 2019-09-11 11:31 | NUR ---
Paged Dr. Banda regarding patient's request for more pain medicine although patient just got Morphine IR
[2019-09-11] MEDS ORDERED: HYDROmorphone 2mg/ml vial IV ONE (12:30)
[2019-09-11] MEDS ORDERED: HYDROmorphone 1 mg/ml syringe IV ONE (12:35)
[2019-09-11] MEDS: normal saline 1000ml 1,000 ML IV SCH (12:45)
[2019-09-11] MEDS: HYDROmorphone 2mg tablet PO PRN ×2 (17:30→21:16)
--- NOTE | 2019-09-11 18:43 | NUR ---
Problems reprioritized. Patient report given, questions answered & plan of care reviewed with Ama PINEDA.
--- NOTE | 2019-09-11 18:44 | NUR ---
Patient in room [facility]. I have received report from Lynn Payne and had the opportunity to ask questions and assume patient care. Addendum: 09/11/19 at 1845 by Ama Marr RN Amended: Links added.
[2019-09-11 20:00] VITALS: BP 155/79
--- NOTE | 2019-09-11 20:00 | NUR ---
PT MEDICATED FOR PAIN WITH MS IR AND TOOK OTHER HS MEDS AT THIS TIME. C/O BACK LUNG AND RIGHT ARM PAIN 9.5 OUT OF 10.
[2019-09-11] MEDS ORDERED: warfarin 5mg tablet PO ONE (21:00)
--- NOTE | 2019-09-11 21:20 | NUR ---
PT C/O SOB VITALS TAKEN STABLE EXCEPT SATS DROPPED FROM 93% ON ROOM AIR TO 89% THEN WHILE IN ROOM WITH HIM THEY DECREASED TO 84% WHILE SITTING EDGE OF BED. 1L O2 APPLIED FOR COMFORT. THEN MEDICATED WITH PO DILAUDID FOR THE PAIN 9/10 AT THIS TIME REPORTED.
--- NOTE | 2019-09-11 22:29 | NUR ---
PT LAYING IN BED RESTING WITH 1L NC O2 ON. NO S&S OF DISTRESS.
--- NOTE | 2019-09-11 23:27 | NUR ---
pt c/o sob sat 94% Dr Langley notified of wheezes in right lung and order for Rt eval and treat obtained.
[2019-09-12] VITALS (7 sets, daily range): BP systolic 86–147; BP diastolic 43–70
--- NOTE | 2019-09-12 00:05 | NUR ---
pt had Rt in to evaluate and treat him.
[2019-09-12] MEDS: albuterol 2.5 MG/3 ML nebule NEB PRN ×3 (00:07→10:50)
--- NOTE | 2019-09-12 01:30 | NUR ---
pt resting eyes closed without changes.
--- NOTE | 2019-09-12 02:15 | NUR ---
awoke medicated for pain with po Dilaudid
[2019-09-12] MEDS: HYDROmorphone 2mg tablet PO PRN ×5 (02:17→22:32)
--- NOTE | 2019-09-12 02:53 | NUR ---
found pt sitting up in bed 02 off said as he lays down to get comfortable he becomesshort of breath. o2 put back on and head of bed raised for comfort. noted he is slower to respond on answers tonight and not as clear headed. pt aware Rt will be in later for a treatment.
--- NOTE | 2019-09-12 03:55 | NUR ---
pt sitting up edge of bed confused said, "can't find the keys to these doors and the tool box". attempt reorient. found he again had o2 off and at 84% . reapplied the 02 and attempt to reorient the pt. he then requested lei wick and gave it to him.
--- NOTE | 2019-09-12 04:59 | NUR ---
pt snoring resting HOB up and 02 on. appears comfortable.
--- NOTE | 2019-09-12 05:52 | NUR ---
awoke and medicatedfor pain and used the bathroom. reminded pt to put his 02 back on.
--- NOTE | 2019-09-12 06:07 | NUR ---
Problems reprioritized. Patient report given, questions answered & plan of care reviewed with Lynn Payne. Addendum: 09/12/19 at 0608 by Ama Marr RN Amended: Links added.
--- NOTE | 2019-09-12 06:33 | NUR ---
Patient in room [facility]. I have received report from Ama PINEDA and had the opportunity to ask questions and assume patient care.
--- NOTE | 2019-09-12 06:34 | NUR ---
Patient lying on bed sleeping comfortably, breathing normally.
[2019-09-12] MEDS: (Linaclotide (Linzess) 1 CAP) PO SCH (08:00)
[2019-09-12] MEDS: morphine IR (immed. release) 30mg tablet PO SCH (08:00)
[2019-09-12] MEDS: metoprolol tartrate 25mg tablet PO SCH ×2 (08:00→19:30)
--- NOTE | 2019-09-12 09:52 | NUR ---
Patient has been too sleepy today. Patient will fall asleep back when I talk to him. His BP at 0915am was 86/50, pulse 63, repeat was 91/50, pulse 65. O2 sat has been 95% on 2lpm/nc. Charge nurse notified about this. Paged Dr. Banda, notified about this and the shortness of breath last night. Oral meds cannot be given at this time due to sleepiness
[2019-09-12] MEDS: duloxetine 30mg CAPSULE.DR PO SCH (10:00)
[2019-09-12] MEDS: baclofen 10mg tablet PO SCH (10:00)
[2019-09-12] MEDS: gabapentin 300mg capsule PO SCH ×2 (10:00→16:14)
[2019-09-12] MEDS: levoTHYROXINE 25mcg tablet PO SCH (10:00)
[2019-09-12] MEDS: rifampin 300mg capsule PO SCH (10:01)
--- NOTE | 2019-09-12 10:35 | NUR ---
Patient is more awake now. Dr. Banda called back, I updated him about patient's condition last night and today. Received order to do ABG and chest xray
[2019-09-12 10:46] LABS: ABG BASE EXCESS 2.4 mmol/L (-2.0-3.0); ABG HCO3 26.6 mmol/L (22.0-26.0); ABG OXYGEN SATURATION 94.7 % (95-98); ABG PCO2 (T) 39.9 mmHg (35.0-45.0); ABG PH (T) 7.442 (7.350-7.450); ABG PO2 (T) 77.1 mmHg (83-108); ALLEN'S TEST Positive; FCOHb 1.1 % (0.5-1.5); FLOW 2 L/min; FMetHb 0.2 % (0.3-1.12); FO2Hb 93.5 % (94-100); TOTAL HEMOGLOBIN 9.7 G/dl (14.0-17.9)
[2019-09-12] MEDS: furosemide 20 MG/2 ML vial IV SCH (13:35)
--- NOTE | 2019-09-12 18:18 | NUR ---
Received report from MIRIAM Bailey. Patient is awake and alert on 2L NC, in no apparent distress. Call light and items of frequent use within reach. Will continue to monitor.
--- NOTE | 2019-09-12 18:24 | NUR ---
Problems reprioritized. Patient report given, questions answered & plan of care reviewed with Allison PINEDA.
[2019-09-12] MEDS: ALPRAZolam 0.25mg tablet PO PRN (19:30)
[2019-09-12] MEDS ORDERED: warfarin 7.5mg tablet PO ONE (21:00)
[2019-09-13] VITALS: BP 146/70
[2019-09-13] MEDS: gabapentin 300mg capsule PO SCH ×3 (00:12→15:10)
[2019-09-13] MEDS: HYDROmorphone 2mg tablet PO PRN ×3 (03:31→13:23)
[2019-09-13] MEDS: morphine 2 MG/ML inj. syringe IV PRN ×3 (04:24→15:11)
[2019-09-13 06:30] VITALS: BP 111/64
--- NOTE | 2019-09-13 06:43 | NUR ---
Problems reprioritized. Patient report given, questions answered & plan of care reviewed with MIRIAM Treadwell.
[2019-09-13] MEDS: (Linaclotide (Linzess) 1 CAP) PO SCH (08:00)
[2019-09-13] MEDS: rifampin 300mg capsule PO SCH (08:00)
[2019-09-13] MEDS: ALPRAZolam 0.25mg tablet PO PRN (08:32)
[2019-09-13] MEDS: levoTHYROXINE 25mcg tablet PO SCH (09:54)
[2019-09-13] MEDS: baclofen 10mg tablet PO SCH (09:55)
[2019-09-13] MEDS: duloxetine 30mg CAPSULE.DR PO SCH (09:55)
[2019-09-13] MEDS: furosemide 20 MG/2 ML vial IV SCH (09:58)
[2019-09-13] MEDS ORDERED: MORP15TA PO (10:48)
[2019-09-13 11:00] VITALS: BP 101/41
[2019-09-13 11:07] VITALS: BP_SYST 111
[2019-09-13] MEDS: metoprolol tartrate 25mg tablet PO SCH (11:07)
--- NOTE | 2019-09-13 14:01 | NUR ---
Reassessment: Patient's PO intake has declined to averaging 50-75%. Pt seen at bedside endorses a good appetite and states he's getting full from his meals. Pt reports some difficulty swallowing however declines texture modification or BSS with ST. Pt states he has seen an ST before for a BSS and was told he didn't have issues swallowing. Pt with visible fat and muscle wasting meeting criteria for malnutrition, MD notified. Pt provided with written alternative menu to provide additional food options and RD contact information. Pt declines any preferences at this time. LBM 09/10, pt with PRN MoM last given today. Will continue to follow closely. Recommendations: 1) Continue regular diet 2) Encourage PO intake; [place] food preferences 3) Bowel care PRN 4) Wt per rx Addendum: 09/13/19 at [address] Amended: Links added.
--- NOTE | 2019-09-13 18:20 | NUR ---
Patient stated understanding of all discharge instructions. All belongings accounted for. Pt given RX script for Morphine to get filled. Taxi service was called and informed that he needed to stop at his pharmacy to get it filled and then to take him home. Pt was taken by wheelchair to Taxi service.
[2019-09-13] MEDS ORDERED: warfarin 4mg tablet PO ONE (21:00)
== END 2019-09-13 18:31 | disposition home health service (06) | DRG 808 ==
LOC: ER 14:56 → ORTHO 4S 19:46 → SUR 3N 09-06 17:52
PROVIDERS: ADMIT Internal Medicine; ATTEND Family Medicine
PROC: 30233N1 Transfusion of Nonautologous Red Blood Cells into Peripheral Vein, Percutaneous Approach (ICD-10-PCS; principal; 2019-09-08)
DX: D61.818 Other pancytopenia (principal); J96.01 Acute respiratory failure with hypoxia; D68.9 Coagulation defect, unspecified; C78.7 Secondary malignant neoplasm of liver and intrahepatic bile duct; E87.1 Hypo-osmolality and hyponatremia; J91.0 Malignant pleural effusion; M54.5 Low back pain; C06.9 Malignant neoplasm of mouth, unspecified; E03.9 Hypothyroidism, unspecified; R74.0 Nonspecific elevation of levels of transaminase and lactic acid dehydrogenase [LDH]; Z60.2 Problems related to living alone; I95.9 Hypotension, unspecified; F10.20 Alcohol dependence, uncomplicated; G89.29 Other chronic pain; I10 Essential (primary) hypertension; I25.10 Atherosclerotic heart disease of native coronary artery without angina pectoris; I35.0 Nonrheumatic aortic (valve) stenosis; Z66 Do not resuscitate; Z95.1 Presence of aortocoronary bypass graft; I25.2 Old myocardial infarction; Z95.2 Presence of prosthetic heart valve; Z59.0 Homelessness
CPT/HCPCS: 36415; 36600; 71045; 72100; 72148; 74176; 80053; 81001; 82803; 83690; 85018; 85025; 85610; 85730; 86885; 86900; 86901; 86920; 87081; 94640; 94667; 94760; 96374; 96375; 96376; 99285; G0378; J1170; J1644; J1885; J1940; J2270; J2405; J7030; P9016; P9612